=== PATIENT | female | born 1965 | race Caucasian/White ===

== ENCOUNTER → 2016-11-11 | Outpatient (CLI) | payer BC ==
[~2016-11-11] MED LIST: LISI-729 PO
[2016-11-11 11:22] LABS: ALT/SGPT 21 U/L (12-78); BLOOD UREA NITROGEN 17 mg/dl (7-18); CALCIUM 9.4 mg/dl (8.5-10.1); CARBON DIOXIDE 28 mmol/L (21-32); CHLORIDE 104 mmol/L (98-107); CHOLESTEROL 154 mg/dl (0-200); CREATININE 0.84 mg/dl (0.60-1.20); GLUCOSE 92 mg/dl (70-99); POTASSIUM 4.1 mmol/L (3.5-5.1); SODIUM 140 mmol/L (136-145); TRIGLYCERIDES 102 mg/dl (0-150); VERY LOW DENSITY LIPOPROT CALC 20 mg/dl
[2016-11-11 11:25] LABS: ALB/GLOB RATIO 1.4 (0.9-2); ALKALINE PHOSPHATASE 64 U/L (45-117); AST/SGOT 13 U/L (15-37); HDL CHOLESTEROL 52 mg/dl; LDL CHOLESTEROL CALCULATED 82 mg/dl
== END | disposition home or self-care (01) ==
LOC: C.LAB1850 09:35
PROVIDERS: ATTEND Internal Medicine
DX: I10 Essential (primary) hypertension (principal)

== ENCOUNTER → 2017-12-02 | Outpatient (CLI) | payer BC ==
[2017-12-02 10:55] LABS: ALBUMIN 4.1 gm/dl (3.4-5.0); ALT/SGPT 22 U/L (12-78); AST/SGOT 13 U/L (15-37); BLOOD UREA NITROGEN 17 mg/dl (7-18); CALCIUM 9.2 mg/dl (8.5-10.1); CARBON DIOXIDE 27 mmol/L (21-32); CREATININE 0.87 mg/dl (0.60-1.20); GLUCOSE 100 mg/dl (70-99); SODIUM 137 mmol/L (136-145)
[2017-12-02 10:59] LABS: ALKALINE PHOSPHATASE 70 U/L (45-117); CHOLESTEROL 151 mg/dl (0-200); LDL CHOLESTEROL CALCULATED 86 mg/dl; TOTAL PROTEIN 7.9 gm/dl (6.4-8.2)
== END | disposition home or self-care (01) ==
LOC: C.LAB1850 09:17
PROVIDERS: ATTEND Internal Medicine
DX: E78.5 Hyperlipidemia, unspecified (principal); I10 Essential (primary) hypertension